=== PATIENT | male | born 1985 | race Caucasian/White ===

== ENCOUNTER 2016-10-29 19:00 | Emergency (ER) | payer OTHER ==
[~2016-10-29] VITALS: Ht 182.9 cm; Wt 83.1 kg
[~2016-10-29 19:00] MED LIST: BACLOFEN10 MG PO; BUSPAR10 MG PO; CLEOCIN300 MG PO; DEPAKOTE PO; DEPAKOTE500 MG PO; DICYCLOMINE HCL20 MG PO; DOXYCYCLINE HY100 MG PO; LIDODERM 5% P1 PATCH TD; LOPERAMIDE2 M1 PO; LORTAB 5-325 M1 EACH PO; METHADONE10 MG PO; NALTREXONE HCL50 MG PO; NAPROSYN500 MG PO; NORCO 5/3251 TABLET PO; PREDNISONE10 MG PO; PREDNISONE20 MG PO; PROAIR HFA8.5 GM IH; PROVENTIL HFA6.7 GM IH; ROXICODONE5 MG PO; STRATTERA18 MG PO; TORADOL10 MG PO; ULTRAM50 MG PO; VENTOLIN HFA18 GM IH; ZOFRAN ODT4 MG PO; ZOFRAN4 MG PO; [UNRECOGNIZED DRUG - REMARK]
[2016-10-29] MEDS ORDERED: VOLTAREN75 MG PO (20:40)
[2016-10-29 20:55] VITALS: BP 130/85
== END 2016-10-29 20:56 | disposition home or self-care (01) ==
LOC: EME 19:00 → EXP 19:00
DX: S49.91XA Unspecified injury of right shoulder and upper arm, initial encounter (principal); M54.2 Cervicalgia; W00.0XXA Fall on same level due to ice and snow, initial encounter; F17.200 Nicotine dependence, unspecified, uncomplicated
CPT/HCPCS: 73030; 99281; 99284

== ENCOUNTER 2016-11-19 19:22 | Emergency (ER) | payer OTHER ==
[~2016-11-19] VITALS: Ht 182.9 cm; Wt 83.2 kg
[~2016-11-19 19:22] MED LIST changes: +VOLTAREN75 MG PO
[2016-11-19] MEDS ORDERED: NORCO 5/3251 TABLET PO (21:54)
[2016-11-19] MEDS ORDERED: SKELAXIN800 MG PO (21:54)
[2016-11-19 22:56] VITALS: BP 125/78
== END 2016-11-19 22:57 | disposition home or self-care (01) ==
LOC: EME 19:22
DX: S13.9XXA Sprain of joints and ligaments of unspecified parts of neck, initial encounter (principal); S70.02XA Contusion of left hip, initial encounter; S40.011A Contusion of right shoulder, initial encounter; W10.8XXA Fall (on) (from) other stairs and steps, initial encounter; Y93.89 Activity, other specified
CPT/HCPCS: 72040; 73030; 73502; 99281; 99284

== ENCOUNTER 2018-01-21 09:05 | Emergency (ER) | payer OTHER ==
[~2018-01-21] VITALS: Ht 182.9 cm; Wt 72.3 kg
[~2018-01-21 09:05] MED LIST changes: +SKELAXIN800 MG PO
[2018-01-21 11:48] VITALS: BP 120/55
== END 2018-01-21 11:50 | disposition home or self-care (01) ==
LOC: EME 09:05
DX: D17.1 Benign lipomatous neoplasm of skin and subcutaneous tissue of trunk (principal); F17.200 Nicotine dependence, unspecified, uncomplicated; Z88.2 Allergy status to sulfonamides; Z88.1 Allergy status to other antibiotic agents; Z88.6 Allergy status to analgesic agent; Z88.5 Allergy status to narcotic agent
CPT/HCPCS: 76705; 99281; 99284

== ENCOUNTER 2018-04-04 10:30 | Emergency (ER) | payer OTHER ==
[~2018-04-04] VITALS: Ht 182.9 cm; Wt 71.4 kg
[2018-04-04] MEDS ORDERED: VIBRAMYCIN100 MG PO (12:28)
[2018-04-04 12:42] VITALS: BP 110/75
== END 2018-04-04 12:45 | disposition home or self-care (01) ==
LOC: EME 10:30
PROC: 0HQFXZZ Repair Right Hand Skin, External Approach (ICD-10-PCS; principal; 2018-04-04)
DX: S61.212A Laceration without foreign body of right middle finger without damage to nail, initial encounter (principal); W23.0XXA Caught, crushed, jammed, or pinched between moving objects, initial encounter; Y92.810 Car as the place of occurrence of the external cause; Z88.2 Allergy status to sulfonamides; Z88.1 Allergy status to other antibiotic agents; Z88.6 Allergy status to analgesic agent
CPT/HCPCS: 73130; 99281; 99284